=== PATIENT | male | born 1970 | race American Indian/Alaskan Native ===

== ENCOUNTER 2016-09-15 18:39 | Emergency (ER) | payer OTHER ==
[2016-09-15 20:23] VITALS: BP 137/90
[2016-09-15] MEDS ORDERED: FUL-GLO OP ONE ×2 (21:22→21:23)
[2016-09-15] MEDS ORDERED: TETRACAINE 0.5% OU ONE (21:22)
[2016-09-15] MEDS ORDERED: NORCO 5/325 PO ONE (22:20)
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
== END 2016-09-16 01:15 | disposition home or self-care (01) ==
LOC: ED 18:39
DX: S05.02XA Injury of conjunctiva and corneal abrasion without foreign body, left eye, initial encounter (principal); J45.909 Unspecified asthma, uncomplicated; V49.59XA Passenger injured in collision with other motor vehicles in traffic accident, initial encounter; Y92.415 Exit ramp or entrance ramp of street or highway as the place of occurrence of the external cause; Y93.89 Activity, other specified; Y99.8 Other external cause status
CPT/HCPCS: 70480